=== PATIENT | female | born 1945 | race Caucasian/White ===

== ENCOUNTER → 2016-12-11 | Outpatient (CLI) | payer OTHER, MEDICARE ==
[~2016-12-11] MED LIST: GADOBUTROL 10 ML VIAL IVP ONE
== END ==
LOC: FIMAGING 11:47
PROVIDERS: ATTEND Psychiatry & Neurology Neurology
DX: G93.89 Other specified disorders of brain (principal); M51.36 Other intervertebral disc degeneration, lumbar region; M50.31 Other cervical disc degeneration, high cervical region; M48.02 Spinal stenosis, cervical region; M50.821 Other cervical disc disorders at C4-C5 level; I71.6 Thoracoabdominal aortic aneurysm, without rupture; I71.4 Abdominal aortic aneurysm, without rupture; M48.00 Spinal stenosis, site unspecified; G62.9 Polyneuropathy, unspecified; R26.0 Ataxic gait
CPT/HCPCS: 70553; 72141; 72148; A9585; 82607-90; 86334-90

== ENCOUNTER 2016-12-13 15:04 | Inpatient (IN) | payer OTHER, MEDICARE ==
--- NOTE | 2016-12-13 15:06 | EDPHY ---
HPI/HX/ROS/PE/MDM Narrative: CHIEF COMPLAINT: Nausea, vomiting HPI: The patient is a 71 y/o female arriving via EMS from a neurology follow up appointment at [facility] at the referral of her neurologist. Per , she has become progressively weaker for the last 2 months with associated difficulty eating. She saw her PCP, Dr. Rodriguez, 2 weeks ago and she ordered MRIs of her head, neck, and spine to investigate patient's complaint of bilateral leg numbness, headaches, weight loss, and generalized weakness. She was at her neurologist's office today to discuss the MRI results, but was not evaluated before her neurologist called EMS due to hypotension, tachycardiac, vomiting, and weakness. The patient reports she feels "very weak and tired," but it is not clear if her symptoms are particularly worse today and it sounds like she may have felt vaguely improved earlier this morning. She denies fever, hematemesis, new medications, recent illness, or recent trauma. REVIEW OF SYSTEMS: Aside from elements discussed in the HPI, a comprehensive 10-point review of systems was reviewed and is negative. PMH: Peripheral artery disease, depression, descending thoracic aneurysm, degenerative disc disease, white matter changes on brain MRI 12/11/16, femoral popiteal bypass surgery May 2016, hypertension - lisinopril, insomnia - trazodone SOCIAL HISTORY: and daughter at bedside. Smoker. Surgeon: Dr. Kaiser Molina Neurologist: Dr. Gaxiola PCP: Dr. Sandra Rodriguez Prior medical records reviewed including MRIs from 12/11/16 and prior admission for dyspnea. PHYSICAL EXAM: General:Patient is alert, in no acute distress. Cachectic, thin. 86% SpO2 on room air. ENT:Eyes are normal to inspection. ENT inspection normal. Neck: Normal inspection. Full range of motion. Respiratory:No respiratory distress. Breath sounds normal bilaterally. Cardiovascular: Tachycardic regular rate and rhythm. Strong peripheral pulses. Normal cap refill. Abdomen:The abdomen is nontender to palpation. There are no peritoneal signs. There are normal bowel sounds. Back: Normal to inspection. No tenderness to palpation. Skin: Normal color. No rash. Warm and dry. Extremities: Normal appearance. Full range of motion. Neuro: Oriented x3. Normal motor function. Normal sensory function. ED Course: This is a 71 y/o female who presents with several weeks of worsening weakness with apparent new onset nausea and vomiting today. She was sent to the ED by her neurologist due to concern for tachycardia and hypotension while at their office today, though we do not have those measurements available. She is hypoxemic at 86% on room air, normotensive, and tachycardic at 117 upon arrival here. She appears cachectic but otherwise her exam is unremarkable. Plan to review prior records and perform labs and cardiac monitoring. IV established. Labs drawn including CBC, CHEM, troponin. UA and EKG ordered. MRIs from 12/11/16 show degenerative disc disease, white matter changes, and ventriculomegaly potentially cause by NPH. No acute process. The 12 lead EKG was interpreted by myself. Sinus rhythm rate 84. Abnormal R wave progression. See hard copy and/or "tracemaster" electronic copy for interpretation. MDM: This patient essentially presents with crescendo symptoms of dehydration, anorexia and failure to thrive. The etiology is unknown. Her MRI suggests that NPH may be playing a role. Her workup in the ED is essentially negative. I see no signs of sepsis, severe sepsis, UTI, pneumonia, hyponatremia. - Data Points Laboratory Results: Laboratory Results 12/13/16 17:22 12/13/16 15:32 12/13/16 12/13/16 12/13/16 17:22 16:50 15:32 WBC 8.57 10^3/uL 10^3/uL (3.80-9.50) RBC 5.05 10^6/uL 10^6/uL (4.18-5.33) Hgb 13.5 g/dL g/dL (12.6-16.3) Hct 40.8 % % (38.0-47.0) MCV 80.8 fL L fL (81.5-99.8) MCH 26.7 pg L pg (27.9-34.1) MCHC 33.1 g/dL g/dL (32.4-36.7) RDW 14.7 % % (11.5-15.2) Plt Count 254 10^3/uL 10^3/uL (150-400) MPV 10.2 fL fL (8.7-11.7) Neut % (Auto) 77.4 % H % (39.3-74.2) Lymph % (Auto) 15.4 % % (15.0-45.0) [place] % (Auto) 5.7 % % (4.5-13.0) Eos % (Auto) 0.9 % % (0.6-7.6) Baso % (Auto) 0.2 % L % (0.3-1.7) Nucleat RBC Rel Count 0.0 % % (0.0-0.2) Absolute Neuts (auto) 6.63 10^3/uL H 10^3/uL (1.70-6.50) Absolute Lymphs (auto) 1.32 10^3/uL 10^3/uL (1.00-3.00) Absolute Monos (auto) 0.49 10^3/uL 10^3/uL (0.30-0.80) Absolute Eos (auto) 0.08 10^3/uL 10^3/uL (0.03-0.40) Absolute Basos (auto) 0.02 10^3/uL 10^3/uL (0.02-0.10) Absolute Nucleated RBC 0.00 10^3/uL 10^3/uL (0-0.01) Immature Gran % 0.4 % % (0.0-1.1) Immature Gran # 0.03 10^3/uL 10^3/uL (0.00-0.10) Sodium 132 mEq/L L mEq/L (134-144) Potassium 5.0 mEq/L mEq/L (3.5-5.2) Chloride 97 mEq/L mEq/L (97-110) Carbon Dioxide 25 mEq/l mEq/l (22-31) Anion Gap 10 mEq/L mEq/L (8-16) BUN 18 mg/dL mg/dL (7-23) Creatinine 1.1 mg/dL H mg/dL (0.6-1.0) Estimated GFR 49 Glucose 112 mg/dL H mg/dL (70-100) Calcium 10.1 mg/dL mg/dL (8.5-10.4) Troponin I < 0.012 ng/mL ng/mL (0-0.034) Urine Color YELLOW Urine Appearance HAZY Urine pH 6.0 (5.0-7.5) Ur Specific [place] 1.014 (1.002-1.030) Urine Protein NEGATIVE (NEGATIVE) Urine Ketones TRACE H (NEGATIVE) Urine Blood NEGATIVE (NEGATIVE) Urine Nitrate NEGATIVE (NEGATIVE) Urine Bilirubin NEGATIVE (NEGATIVE) Urine Urobilinogen NEGATIVE EU EU (0.2-1.0) Ur Leukocyte Esterase NEGATIVE (NEGATIVE) Ur Culture Indicated? NOT INDICATED (NI) Urine Glucose NEGATIVE (NEGATIVE) Medications Given: Discontinued Medications Sodium Chloride (Ns) 500 mls @ 0 mls/hr IV ONCE ONE PRN Reason: As Directed Stop: 12/13/16 15:13 Last Admin: 12/13/16 15:47 Dose: 500 mls General Initial Vital Signs: Initial Vital Signs Temperature (C) 36.6 C 12/13/16 15:19 Heart Rate 90 12/13/16 15:19 Respiratory Rate 18 12/13/16 15:19 Blood Pressure 153/99 H 12/13/16 15:19 O2 Sat (%) 86 L 12/13/16 15:19 O2 Delivery Mode Nasal Cannula O2 (L/minute) 2 Allergies/Adverse Reactions: No Known Allergies Allergy (Verified 05/29/16 12:13) Home Medications: Medication Instructions Recorded traZODone [traZODONE 50MG (*)] 100 mg PO HS 05/18/16 Herbals/Supplements -Info Only 1 ea PO DAILY 05/29/16 Fluoxetine HCl [Prozac 40 mg] 40 mg PO DAILY 12/13/16 Lisinopril [Zestril 30 mg] 30 mg PO DAILY 12/13/16 Departure - Departure Disposition: [facility] Inpatient Acute Clinical Impression: Dehydration Failure to thrive Qualifiers: Failure to thrive age range: in adult Qualified Code(s): R62.7 - Adult failure to thrive Nausea and vomiting Qualifiers: Vomiting type: unspecified Vomiting Intractability: non-intractable Qualified Code(s): R11.2 - Nausea with vomiting, unspecified Condition: Fair Report Scribed for: Luc Goodwin Report Scribed by: Mamta Multani Date of Report: 12/13/16 Time of Report: 15:05 Physician Review and Approval Statement: Portions of this note were transcribed by an ED scribe. I personally performed the history, physical exam, and medical decision making; and confirm the accuracy of the information in the transcribed note.
[2016-12-13] MEDS ORDERED: NS 500 ML IV ONE (15:12)
--- NOTE | 2016-12-13 15:45 | CPEKG ---
Heart Rate: 84 RR Interval: 714 P-R Interval: 136 QRSD Interval: 78 QT Interval: 392 QTC Interval: 464 P [place]: 87 QRS [place]: 37 T Wave [place]: 72 EKG Severity - ABNORMAL ECG - EKG Impression: SINUS RHYTHM EKG Impression: PROBABLE LEFT ATRIAL ABNORMALITY EKG Impression: ABNRM R PROG, CONSIDER ASMI OR LEAD PLACEMENT Electronically Signed By: Freida Duggan 14-Dec-2016 10:29:21
[2016-12-13 15:52] LABS: ANION GAP 10 mEq/L (8-16); CALCIUM 10.1 mg/dL (8.5-10.4); CARBON DIOXIDE 25 mEq/l (22-31); CHLORIDE 97 mEq/L (97-110); CREATININE 1.1 mg/dL (0.6-1.0); GLOMERULAR FILTRATION RATE 49; GLUCOSE 112 mg/dL (70-100); SODIUM 132 mEq/L (134-144)
[2016-12-13 16:04] LABS: TROPONIN I < 0.012 ng/mL (0-0.034)
[2016-12-13 17:21] LABS: COLOR YELLOW; LEUKOCYTE ESTERASE,URINE NEGATIVE (NEGATIVE); NITRITE,URINE NEGATIVE (NEGATIVE)
[2016-12-13 17:31] LABS: % IMMATURE GRANULYOCYTES 0.4 % (0.0-1.1); ABSOLUTE IMMATURE GRANULOCYTES 0.03 10^3/uL (0.00-0.10); ADD DIFF? NO; ADD MORPH? NO; ADD SCAN? NO; ATYPICAL LYMPHOCYTE FLAG 10 (0-99); FRAGMENT RBC FLAG 0 (0-99); HEMATOCRIT 40.8 % (38.0-47.0); HEMOGLOBIN 13.5 g/dL (12.6-16.3); LEFT SHIFT FLG 0 (0-99); LIPEMIA HEMOLYSIS FLAG 80 (0-99); MEAN CELL HEMOGLOBIN 26.7 pg (27.9-34.1); MEAN CELL HEMOGLOBIN CONCENTR. 33.1 g/dL (32.4-36.7); MEAN CELL VOLUME 80.8 fL (81.5-99.8); MEAN PLATELET VOLUME 10.2 fL (8.7-11.7); PLATELET CLUMPS FLAG 0 (0-99); PLATELET COUNT 254 10^3/uL (150-400); RED BLOOD CELL COUNT 5.05 10^6/uL (4.18-5.33); RED CELL DISTRIBUTION WIDTH 14.7 % (11.5-15.2)
[2016-12-13] MEDS ORDERED: ACETAMINOPHEN 325 MG TAB PO PRN (19:39)
[2016-12-13] MEDS ORDERED: IOPAMIDOL (ISOVUE-300) 100 ML BTL IV ONE (19:51)
[2016-12-13] MEDS: ONDANSETRON 4 MG/2 ML VIAL IVP PRN (20:29)
[2016-12-13] MEDS: D5W 1/2 NS 1,000 ML IV SCH (22:14)
[2016-12-13] MEDS: traZODone 100 MG TAB PO SCH (22:33)
[2016-12-14 06:00] LABS: ALANINE AMINOTRANSFERASE 29 IU/L (9-52); ALBUMIN 3.1 g/dL (3.5-5.0); ALKALINE PHOSPHATASE 66 IU/L (38-126); ANION GAP 7 mEq/L (8-16); ASPARTATE AMINOTRANSFERASE 17 IU/L (14-46); BILIRUBIN,TOTAL 0.7 mg/dL (0.1-1.4); CALCIUM 8.9 mg/dL (8.5-10.4); CARBON DIOXIDE 24 mEq/l (22-31); CHLORIDE 102 mEq/L (97-110); CREATININE 0.9 mg/dL (0.6-1.0); GLOMERULAR FILTRATION RATE > 60; GLUCOSE 97 mg/dL (70-100); POTASSIUM 4.4 mEq/L (3.5-5.2); SODIUM 133 mEq/L (134-144); TOTAL PROTEIN 5.6 g/dL (6.3-8.2)
[2016-12-14 06:07] LABS: PREALBUMIN 19.3 mg/dL (17.6-36.0)
[2016-12-14] MEDS: FLUoxetine 20 MG CAP PO SCH (09:41)
[2016-12-14] MEDS: ENOXAPARIN 30 MG/0.3 ML SYR SC SCH (09:41)
[2016-12-14] MEDS: LISINOPRIL 20 MG TAB PO SCH (09:43)
[2016-12-14] MEDS: ONDANSETRON 4 MG/2 ML VIAL IVP PRN ×2 (09:50→17:31)
[2016-12-14] MEDS: D5W 1/2 NS 1,000 ML IV SCH (12:15)
--- NOTE | 2016-12-14 14:56 | GHP ---
[f rep st] HISTORY AND PHYSICAL DATE OF ADMISSION: 12/13/2016 This is a late entry. I believe I dictated this H and P last night but it has not been recorded so I am redictating it at this time. CHIEF COMPLAINT: Weakness and failure to thrive. HISTORY OF PRESENT ILLNESS: This is a 71-year-old female with a history of peripheral vascular dise ase who had a bypass surgery done in May of last year. The patient states that since this operat ion, she has been slowly getting worse, especially over the last month. She has had nausea and decr eased p.o. intake. She has had about 30 pounds of weight loss. She also is complaining of lower ex tremity weakness, which she says is out of proportion to her general debility. She has had no fever s or chills. No abdominal pain. Her bowel movements were normal. She denies any fevers or chills. She last saw her primary care doctor a couple of weeks ago who ordered MRI of her brain and spine. There is some suggestion of normal-pressure hydrocephalus but nothing acute to explain her lower e xtremity weakness. She had an appointment with a neurologist today and had some hypotension, tachyc ardia and vomiting. She came to the emergency department today. REVIEW OF SYSTEMS: A 10-point review of systems was obtained and was negative. PAST MEDICAL HISTORY: 1. Peripheral vascular disease status post fem-pop bypass last year. 2. History of descending thoracic aneurysm. 3. Hypertension. SOCIAL HISTORY: She is . FAMILY HISTORY: Father had a stroke. PHYSICAL EXAMINATION: VITAL SIGNS: Afebrile. Blood pressure is 151/74, heart rate 83, oxygen satu ration is 97% on 2 L. GENERAL: The patient is cachectic in no apparent distress. HEENT: Nonicter ic sclerae. Moist mucous membranes. NECK: Supple. No thyromegaly. LUNGS: Good effort. Clear t o auscultation bilaterally. CARDIOVASCULAR: Regular rate and rhythm. No murmurs, rubs, or gallops . ABDOMEN: Positive bowel sounds. Soft. No masses. EXTREMITIES: No clubbing, cyanosis, or juwan a. SKIN: Without rash. Warm, dry, intact. NEUROLOGIC: 5/5 strength in all 4 extremities. PSYCH : Normal affect. LABORATORY DATA: CBC is normal. Chemistry is normal. Chest x-ray shows thoracic aortic aneurysm and is otherwise negative. ASSESSMENT: This is a 71-year-old female who has been at a slow decline with increased lower extrem ity weakness. PLAN: 1. Weight loss, abdominal symptoms, chronic nausea. Unsure what the etiology is. She has not had a CT scan of her abdomen and pelvis, which I think we will start with. Gallbladder disease is also possible and could consider HIDA scan. Would also consider Gastroenterology consultation and possib ly endoscopy as well. We will check a CEA and a prealbumin. We will also get a CAT scan of her dylan st as she is a previous smoker and to rule out some type of malignancy. 2. Lower extremity weakness. I think this is more related to her overall weakness. We could have Neurology see the patient in-house as well. 3. Thoracic aortic aneurysm. We will see this on the CT scan of the chest. 4. Hypertension. Will continue her medications. /[id number]/MODL
--- NOTE | 2016-12-14 15:27 | HOSPPROG ---
Hospitalist Progress Note Assessment/Plan: this is a 71-year-old female new to my care presenting with # chronic nausea, anorexia, and weight loss of unclear etiology. I discussed case with her surgeon Dr. Julien Molina is thinks some of her problems may be related to depression. CEA was done on admission that was very mildly elevated. The patient's family tell me that she has had a negative GI workup in the past. Will consider repeat GI consultation to evaluate for upper endoscopy if her symptoms are not explained by Something else. doubt biliary etiology given her normal LFTs in lack of abdominal pain. # lower extremity weakness in the setting of cognitive impairment, urinary incontinence, gait disturbance, and possible evidence for NPH on MRI - neurology consult called # 6.4 cm aneurysmal dilation of the descending thoracic aorta - cardiothoracic surgery to consult # hypertension disposition: Will continue inpatient care since clearly the patient is not doing well at home. Subjective: she continues to have nausea. She is hardly eating anything. She continues to have weakness in her legs. She reports some intermittent incontinence which she thinks that this is more from inability to get to the bathroom then inability to control of bladder. Objective: Vital Signs Temp Pulse Resp BP Pulse Ox 36.4 C 82 16 125/79 H 96 12/14/16 11:32 12/14/16 11:32 12/14/16 11:32 12/14/16 11:32 12/14/16 11:32 Laboratory Results 12/14/16 05:36 12/13/16 12/14/16 12/15/16 05:59 05:59 05:59 Intake Total 300 361 Balance 300 361 - Physical Exam Constitutional: chronically ill appearing Cardiovascular: regular rate and rhythym, no murmur, rub, or gallop Respiratory: no respiratory distress, no rales or rhonchi, clear to auscultation Gastrointestinal: normoactive bowel sounds, soft, non-tender abdomen, no palpable masses, No guarding, No rebound Neurologic: AAOx3, CN II-XII Intact, No facial droop ICD10 Worksheet Patient Problems: Problems Problem Status Onset Renal infarction Acute Shortness of breath Acute Failure to thrive Acute Nausea and vomiting Acute Dehydration Acute
[2016-12-14] MEDS: ONDANSETRON DISINTEGRATING 4 MG TAB PO PRN (20:34)
[2016-12-14] MEDS: traZODone 100 MG TAB PO SCH (20:34)
[2016-12-15] MEDS: FLUoxetine 20 MG CAP PO SCH ×2 (08:39→10:03)
[2016-12-15] MEDS: ENOXAPARIN 30 MG/0.3 ML SYR SC SCH (08:40)
[2016-12-15] MEDS: LISINOPRIL 20 MG TAB PO SCH (10:03)
--- NOTE | 2016-12-15 12:45 | PDCONSULT ---
Client Manager Note: Today's consultation was spent in counseling and coordination of care. I visited with the patient and her for 60 mins. 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 Cary is a patient of mine from the outpatient setting I've been evaluating for chronic gait dysfunction. she had presented for neurologic follow-up at our office on December 13, but appeared to be late for her appointment. She was found outside of our office by 1 of our medical assistance unable to ambulate and vomiting in the hallway. She endorsed nausea and was found to have systolic blood pressures in the 80s-90s and was tachycardic in the 110s. She was sent to the emergency department for the above-noted symptoms and admitted to the hospital for evaluation. I was asked to see the patient while she has been hospitalized for evaluation and follow-up on her recent neuro imaging studies. I was able to visit with the patient and her . We performed standard reversible neuropathy labs in the outpatient setting which were unremarkable, but she did have length-dependent changes on exam suspect for an idiopathic peripheral neuropathy. She had MRIs of the cervical and lumbar spine which revealed moderate stenosis at the C5-6 level with cervical cord effacement but no edema or myelomalacia. She has a lesser degree of stenosis in the lumbar spine. She had brain imaging in the form of an MRI without contrast which showed chronic microvascular ischemic changes in the periventricular and subcortical regions (more frontally-based) as well as ventricular dilatation that seem mildly out of proportion to her global volume loss with possible transependymal flow. This has all been on a background of severe deconditioning , protein calorie malnutrition and failure to thrive with loss of appetite and depressed mood. We discussed how she has a lot going on that can be contributing to her gait dysfunction. Definitive diagnosis of NPH would involve high volume lumbar puncture with video gait analysis, which we do not offer here and is offered at [facility]. This would only be undertaken if she would be amenable to CSF diversion surgery. With regards to her spinal stenosis this would involve surgical correction and decompression, namely in the cervical spine. She voiced that she is not interested in any sort of surgical intervention, and I do not think she would be a good surgical candidate in any case given her overall physical state. We discussed in the outpatient setting, and I reinforced at this visit, continuing to optimize her conventional vascular risk factors to prevent progression of vascular disease of the brain, which could result in progressive gait disturbance due to vascular parkinsonism or stroke. We did not find any obvious reversible cause for her peripheral neuropathy, but there is a lot of nutritional deficiency in the background, so this may be playing a role. We discussed healthy overall plan going forward should be directed optimizing her nutritional status, mood and appetite. She is also being evaluated for inpatient rehab, which I think is a good idea. Focus going forward with regards to her gait should be in keeping her safe and mobile for as long as possible. I reinforced nutritional supplementation with Ensure shakes, at least 2-3 per day to provide more protein in calories. She does note significant diminished appetite for which she has tried medical marijuana as well as dronabinol. She may be a good candidate for megestrol for appetite stimulation. Another consideration may be low dose mirtazapine, which could aid in her appetite and depression, though this tends to take more time to achieve therapeutic benefit. I addressed questions and concerns at length. I offered followup with me when she has transitioned to inpatient rehab or thereafter - they can call my office for followup.
[2016-12-15] MEDS: ONDANSETRON DISINTEGRATING 4 MG TAB PO PRN (15:33)
--- NOTE | 2016-12-15 15:40 | HOSPPROG ---
Hospitalist Progress Note Assessment/Plan: 71-year-old female p/w adult FTT. # chronic nausea, anorexia, and weight loss of unclear etiology. -may be a/w depression (per her surgeon Dr. Julien Molina) -add antiemetics as Zofran isn't working. # mild CEA elevation -consider repeat GI consultation to evaluate for upper endoscopy if needed. # Possible NPH - neurology recs appreciated. # 6.4 cm aneurysmal dilation of the descending thoracic aorta - cardiothoracic surgery consulted - spoke w/ Dr. Collins today -his consultation dictation from 12/14/16 seems to have not made it through waterworks supervisor - he said her symptoms/reason for hospitalization are not coming from the TAA, that open surg carries too high risks that do not outweigh benefits in this bedbound, frail patient. She may FU as outpt for elective stent placement in the future. # hypertension disposition: med surg, inpatient status, cannot anticipate DC at this time Subjective: Saw pt today, c/o N/V. No BM. No Abd pain. Objective: Vital Signs Temp Pulse Resp BP Pulse Ox 36.7 C 81 16 119/66 94 12/15/16 12:00 12/15/16 12:00 12/15/16 12:00 12/15/16 12:00 12/15/16 12:00 Laboratory Results 12/14/16 05:36 12/14/16 12/15/16 12/16/16 05:59 05:59 06:59 Intake Total 300 2617 Output Total 300 Balance 300 2617 -300 General: The patient is a thin, elderly female who is alert and in no acute distress. HEENT: normocephalic, extraocular movements intact, conjunctivae clear, no lesions on face. Mucous membranes moist. Neck: trachea midline, no visible masses, no external lesions. CV: +S1/S2, RRR, no MRG. Resp: unlabored, CTAB no RRW. Abd: soft and nondistended. +BS. Mild point tenderness at McBurney's point and at umbilicus. Musculoskeletal: +muscle atrophy/wasting. Neuro: cranial nerves II XII grossly intact. Intact gross motor and sensory function. Psych: depressed mood/blunted affect. Skin: +pallor. Heme/lymph: No peripheral edema. ICD10 Worksheet Patient Problems: Problems Problem Status Onset Dehydration Acute Failure to thrive Acute Nausea and vomiting Acute Renal infarction Acute Shortness of breath Acute
[2016-12-15] MEDS: traZODone 100 MG TAB PO SCH (21:02)
[2016-12-15] MEDS ORDERED: PROMETHAZINE HCL 25 MG TAB PO PRN (21:33)
[2016-12-16] MEDS: ONDANSETRON DISINTEGRATING 4 MG TAB PO PRN (05:15)
[2016-12-16 06:46] LABS: ALANINE AMINOTRANSFERASE 30 IU/L (9-52); ALBUMIN 2.8 g/dL (3.5-5.0); ALKALINE PHOSPHATASE 59 IU/L (38-126); ANION GAP 5 mEq/L (8-16); ASPARTATE AMINOTRANSFERASE 16 IU/L (14-46); BILIRUBIN,TOTAL 0.5 mg/dL (0.1-1.4); CARBON DIOXIDE 27 mEq/l (22-31); CHLORIDE 105 mEq/L (97-110); CREATININE 0.8 mg/dL (0.6-1.0); GLOMERULAR FILTRATION RATE > 60; GLUCOSE 95 mg/dL (70-100); MAGNESIUM 1.7 mg/dL (1.6-2.3); SODIUM 137 mEq/L (134-144); TOTAL PROTEIN 5.2 g/dL (6.3-8.2)
[2016-12-16] MEDS: D5W 1/2 NS 1,000 ML IV SCH ×2 (09:30→22:04)
--- NOTE | 2016-12-16 11:47 | GCON ---
[f rep st] CONSULTATION DATE OF CONSULTATION: 12/13/2016 REFERRING PHYSICIAN: Elias Nagel, DO Initially performed on 12/13 and dictated on 12/13, however, not recorded in the system, and re-dictated on 12/16/2016. The patient is seen at the request of Dr. Nagel with the patient's permission. IMPRESSION: 1. Enlarging, descending thoracoabdominal aneurysm. 2. Failure to thrive of uncertain etiology with marked weight loss and profound weakness to the poi nt of being a total assist and bedridden patient. 3. Hypertension. 4. History of chronic obstructive pulmonary disease with chronic longstanding cigarette abuse. RECOMMENDATIONS: The patient does have evidence of enlargement of the descending thoracic aorta con sistent with thoracoabdominal aneurysm, and in this circumstance often TEVAR could be offered as an endovascular approach to stabilizing and controlling the upper aneurysm to the celiac artery with so me risk of paraplegia. I would not offer it to this patient at the present time, due to her other c hronic health issues with marked weight loss, weakness, and failure to thrive. The aneurysm is in n o way contributing to her current medical condition. She is at some risk for rupture, at which poin t I would not offer her surgical intervention at this point, either given her continued deterioratin g status of uncertain etiology. Should her medical status improve or stabilize and she were able to return to full productive life with weight stabilization, weight gain, and ambulatory status, I wou ld offer her a moderate to high risk endovascular control of her expanding thoracic aneurysm, which will eventually rupture. The patient and the daughter were advised of the same. We will provide he r with contact information should she get discharged from the hospital. We could see her in followu p in a month with repeat CT scan if she, in fact, continues to stabilize and improve. CHIEF COMPLAINT: Failure to thrive, weakness, and poor general status. HISTORY OF CHIEF COMPLAINT: The patient has had a continuous downhill course for the last 9-12 jose e hs of weight loss, weakness. As stated above. She was to be seen by a neurologist for her ongoing weakness when she became somewhat unstable at the office, and was referred to the emergency room. S he since has been admitted to the hospitalist service. CT scan revealed marked thoracic and abdomin al aortic changes as described in the CT scan. MEDICAL HISTORY: Noncontributory. SOCIAL HISTORY: Socially, she has recently discontinued heavy ongoing cigarette abuse for most of h er life with COPD and peripheral vascular disease. She had a known thoracic aneurysm, which had been followed by Dr. Molina, but was felt to be too high risk to intervene. I was asked to see her regarding her current aneurysm status. REVIEW OF SYSTEMS: Not elicited. I strictly address the aneurysm. PHYSICAL EXAMINATION: GENERAL: This is a cachectic, elderly female who appears quite weak and frai l, unable to sit at the edge of the bed by herself, requiring full assistance of nursing and her tyshawn ghter, who is at the bedside. VITAL SIGNS: Blood pressure was 96/70, respirations are 14, heart ra te 72. GENERAL: Cachectic and weak. CARDIAC: Heart rate is regular without a murmur. LUNGS: Di minished with increased AP diameter. ABDOMEN: Scaphoid. EXTREMITIES: Femoral pulses are 2+. She has no edema. No varicosities. DIAGNOSTIC STUDIES: A CT scan was reviewed. /[id number]/MODL
[2016-12-16] MEDS: FLUoxetine 20 MG CAP PO SCH (11:55)
[2016-12-16] MEDS: ENOXAPARIN 30 MG/0.3 ML SYR SC SCH (11:56)
--- NOTE | 2016-12-16 16:47 | GCON ---
[f rep st] CONSULTATION DATE OF CONSULTATION: 12/16/2016 REFERRING PHYSICIAN: Dr. Watson REASON FOR CONSULTATION: Nausea, weight loss, anorexia, failure to thrive. HISTORY OF PRESENT ILLNESS: I have been asked by Dr. Watson to see the patient in consultation with a chief complaint of weakness, anorexia, nausea, and weight loss. She is a pleasant 71-year-old female with past medical history significant for peripheral vascular disease and hypertension, who was doing reasonably well until last May in 2015 when she had a femoral-popliteal bypass, and since then, has been doing very poorly. Her p.o. intake has been decreasing. She complains of nausea, early satiety, and she has lost a significant amount of weight. She is more weak because of her weight loss and decline. She does not complain of dysphagia, odynophagia or heartburn. She does not remember being tried on any acid-reducing medications. She has not been on any antinausea medications except for Zofran. She does not complain of any diarrhea or constipation. She has no fevers, chills or sweats. She does have a peripheral neuropathy; this is being worked up by Neurology. She has been admitted for the above symptoms, and I am called to help and evaluate to see if there is a GI etiology for these. PAST MEDICAL HISTORY: Peripheral vascular disease, history of descending thoracic aneurysm, hypertension. PAST SURGICAL HISTORY: Fem BiPAP in May 2016, and tonsillectomy as a child. SOCIAL HISTORY: She is . She does not smoke or drink. FAMILY HISTORY: She has a lot of strokes in the family. No GI malignancies to her knowledge. MEDICATIONS: In hospital include Tylenol p.r.n., Lovenox 30 mg subcutaneous daily, Prozac 40 mg daily, lisinopril 30 mg daily, Zofran p.r.n., Phenergan p.r.n., trazodone 100 mg daily. As an outpatient, she takes Prozac, lisinopril and trazodone. ALLERGIES: No known drug allergies. REVIEW OF SYSTEMS: A comprehensive review of system is performed, is negative other than noted in the HPI. Pertinent negatives also include no chest pain, palpitations, diaphoresis, melena, hematochezia, hematuria. PHYSICAL EXAMINATION: GENERAL APPEARANCE: Chronically ill-appearing female sitting in her chair in no acute distress. VITAL SIGNS: Blood pressure is 149/ 78, pulse is 96, respirations are 18. She is 93% on nasal cannula. Her temperature was 35.8, earlier today was 36.8. HEENT: Eyes anicteric. EOMI. Mouth: No lesions. NECK: Supple. No JVD. BACK: No spine tenderness. LUNGS : Clear. CARDIAC: S1, S2. Regular rate and rhythm. No murmurs, rubs, gallops appreciated. ABDOMEN: Bowel sounds are normal pitch and frequency. Soft with mild epigastric and right lower quadrant tenderness. No rebound. No guarding. No hepatosplenomegaly. EXTREMITIES: No cyanosis, clubbing, or edema. NEUROLOGIC: Cranial nerves intact. Nonfocal. SKIN: No rashes. No stigmata of advanced liver disease. LABORATORY DATA: From the , WBC 8.57, hemoglobin 13.5, hematocrit 40.8, platelet count 254. From the , sodium 137, potassium 4.0, chloride 105, bicarbonate 27, BUN 7, creatinine 0.8, glucose 95, calcium 9.0, magnesium 1.7, bilirubin is 0.5. AST 16, ALT 30, alkaline phosphatase 59, total protein low at 5.2, albumin low at 2.8. From the , CEA is minimally elevated at 4.17. From the , also TSH is 1.49. From the , troponin was less than 0.012. Urinalysis from the showed trace ketones, otherwise was negative. Celiac labs from the are pending. Abdominal CAT scan from December 13, 2016, with IV, but no oral contrast, shows dilation of the aorta through its course in the abdomen measuring 4 cm at its most. There is insignificant intraluminal plaque noted. Iliac vessels are not dilated. The liver is normal. The gallbladder looks normal. The bile ducts look normal. An abdominal CAT scan done May 19,6 with IV, but no oral contrast, shows atrophic left kidney, with probable acute infarct in the inferior pole of left kidney. A stable abdominal aortic aneurysm. Abdominal ultrasound performed November 02, 2015: Normal gallbladder, without evidence of gallstones or inflammation. Normal bile ducts. Mild hepatic steatosis. Abdominal x-ray from December 16, 2016: Mild right-sided constipation. No evidence of obstruction or ileus. ASSESSMENT: 1. Anorexia. 2. Weight loss. 3. Nausea. 4. History of aortic aneurysm. 5. Possible normal-pressure hydrocephalus and neuropathy being evaluated by Neurology. 6. Hypertension. RECOMMENDATIONS: 1. EGD for evaluation of her anorexia, weight loss, and nausea. 2. Pending results of the EGD, will write for PPI, as well as at bedtime h2ra. I will give a first dose of PPI now, but then will be before breakfast in the future. 3. Treatment of her peripheral vascular disease, aneurysm, hypertension, as per hospitalist and specialists. 4. Further recommendations to follow results of above and clinical course. Thank you for allowing me to participate in this patient's healthcare. Do not hesitate to call with any questions. /[id number]/MODL MTDD
[2016-12-16] MEDS: LISINOPRIL 20 MG TAB PO SCH (16:53)
--- NOTE | 2016-12-16 19:00 | HOSPPROG ---
Hospitalist Progress Note Assessment/Plan: 71-year-old female p/w adult FTT. # chronic nausea, anorexia, early satiety, and weight loss of unclear etiology. -may be a/w depression -added promethazine as Zofran isn't working. -Consulted GI - recs appreciated - planning for EGD. -KUB ordered - r/o ileus -discussed w/ her PCP Dr. Rodriguez and her surgeon Dr. Molina. # mild CEA elevation -Planning for EGD as above. # Possible Mild NPH - neurology recs appreciated. - definitive Dx requires invasive procedure, pt not likely to tolerate. #spinal stenosis # 6.4 cm aneurysmal dilation of the descending thoracic aorta - cardiothoracic surgery consulted - recs appreciated. Poor surg candidate, may FU as outpt for elective stent placement. # 4cm AAA # hypertension #constipation -adding bowel regimen disposition: med surg, inpatient status, cannot anticipate DC at this time Subjective: Pt feels about the same today. Gets full quickly, after 2 bites of food. Has no appetite. Feels very fatigued. Has not had a bowel movement. Objective: Vital Signs Temp Pulse Resp BP Pulse Ox 36.7 C 75 18 117/71 94 12/16/16 16:52 12/16/16 16:52 12/16/16 16:52 12/16/16 16:52 12/16/16 16:52 Laboratory Results 12/16/16 05:08 12/15/16 12/16/16 12/17/16 04:59 05:59 05:59 Intake Total Output Total Balance General: The patient is a thin, elderly female who is alert and in no acute distress. HEENT: normocephalic, extraocular movements intact, conjunctivae clear, no lesions on face. Mucous membranes moist. Neck: trachea midline, no visible masses, no external lesions. CV: +S1/S2, RRR, no MRG. Resp: unlabored, CTAB no RRW. Abd: soft and nondistended. +BS. Mild tenderness to in LUQ/LLQ. Musculoskeletal: +muscle atrophy/wasting. Neuro: cranial nerves II XII grossly intact. Intact gross motor and sensory function. Psych: depressed mood/blunted affect. Skin: +pallor. Heme/lymph: No peripheral edema. ICD10 Worksheet Patient Problems: Problems Problem Status Onset Dehydration Acute Failure to thrive Acute Nausea and vomiting Acute Renal infarction Acute Shortness of breath Acute
[2016-12-16] MEDS ORDERED: MAGNESIUM HYDROXIDE 30 ML UDCUP PO PRN (19:02)
[2016-12-16] MEDS ORDERED: LACTULOSE 20 GM/30 ML UDCUP PO PRN (19:02)
[2016-12-16] MEDS ORDERED: BISACODYL 10 MG SUPP PR PRN (19:02)
[2016-12-16] MEDS ORDERED: POLYETHYLENE GLYCOL 3350 17 GM PKT PO PRN (19:02)
[2016-12-16] MEDS: PANTOPRAZOLE SODIUM 40 MG TAB PO SCH (19:06)
[2016-12-16] MEDS: SENNOSIDES/DOCUSATE SODIUM TAB PO SCH (20:02)
[2016-12-16] MEDS: traZODone 100 MG TAB PO SCH (21:10)
[2016-12-17] MEDS ORDERED: MIDAZOLAM 2 MG/2 ML VIAL ONE ×2 (07:43→08:42)
[2016-12-17] MEDS ORDERED: fentaNYL 100 MCG/2 ML INJ ONE ×2 (07:44→08:42)
--- NOTE | 2016-12-17 08:38 | POSTOPPROG ---
Post Op Note Date of Operation: 12/17/16 Surgeon: Jose R Bell Anesthesia: IV Sedation (versed 4mg iv and fentanyl 100mcg IV) Pre-op Diagnosis: anorexia, weight loss, nause Post-op Diagnosis: 'crepe paper esoph proximally, nml distal esoph, gastritis Indication: anorexia, weight loss nausea Procedure: egd with bx Findings: prox esoh 'crepe paper', erosive gastritis Inf/Abcess present in the surg proc area at time of surgery?: No EBL: Minimal (few ml) Complications: none immediate Specimen(s): 1) antrum 2) body 3) prox esoph
[2016-12-17] MEDS ORDERED: FAMOTIDINE 20 MG TAB PO SCH ×2 (09:00→21:00)
--- NOTE | 2016-12-17 09:34 | GPN ---
[f rep st] PROCEDURE NOTE DATE OF PROCEDURE: 12/17/2016 PROCEDURE: Esophagogastroduodenoscopy with biopsy. INDICATION: Anorexia, weight loss, nausea. PREOPERATIVE DIAGNOSIS: Rule out peptic ulcer disease. POSTOPERATIVE DIAGNOSES: 1. Changes with "crepe paper" esophagitis in the proximal esophagus extending to approximately 30 c m. Normal distal esophagus. 2. Erosive gastritis both in the distal body and the antrum. 3. Normal duodenal. INFORMED CONSENT: I had a detailed discussed with the patient regarding the procedure, alternatives , benefits, and risks including bleeding, perforation, infection, risk of medication. Informed cons ent was signed and witnessed. COMPLICATIONS: None immediate. MEDICATIONS USED: Fentanyl 100 mcg IV, Versed 4 mg IV. DESCRIPTION OF PROCEDURE: Patient was placed in left lateral decubitus position. After adequate se dation, a forward viewing upper endoscope was inserted in the oropharynx and advanced under direct v isualization down the esophagus. The proximal esophagus was abnormal with a "crepe paper" appearanc e. This was only present from the proximal esophagus to approximately 30 cm. The distal esophagus was completely normal without any evidence of esophagitis or other mucosal abnormality. The endosco pe was advanced into the stomach. There was erosive gastritis in the distal body and antrum. The b rene had some heaped up little nodules with erosions in them. The antrum was more of a diffuse proce ss. The pylorus was normal. The duodenal bulb and sweep were normal. The endoscope was withdrawn back into the stomach and a retroflex examination was performed. The endoscope was un-retroflexed a nd biopsies were taken from both the antrum and the distal body for histologic evaluation. The endo scope was withdrawn back up into the proximal esophagus and multiple biopsies were taken from the pr oximal esophagus for histologic evaluation. The endoscope was advanced back into the stomach and th e air was removed. The endoscope was completely withdrawn, confirming the above findings. The karlos ent tolerated the procedure well, and was transferred to recovery area in satisfactory condition. IMPRESSION: 1. "Crepe paper" esophagus and proximal esophagus biopsies approximately 30 cm. 2. Normal distal esophagus. 3. Erosive gastritis and distal body and antrum. 4. Normal duodenal. RECOMMENDATIONS: 1. Continue pantoprazole 40 mg p.o. q. a.m. 2. Add H2RA at bedtime. In the hospital will be Pepcid 40 mg. Outpatient can either be Pepcid/fam otidine 40 mg or Zantac/ranitidine 300 mg. 3. Strict risk modifications and lifestyle changes, specifically do not lie down within 2-3 hours o f eating. 4. Follow up all biopsies. If any significant abnormality, treat as appropriate. 5. If the patient's nausea does not improve, then I would recommend further evaluation with evaluat ion of her biliary system. 6. Return patient to hospital [facility] for ongoing care. 7. Advance diet as tolerated. 8. Further recommendations to follow up with doctor above. The findings I saw could account for the patient's anorexia, weight loss, and nausea but I think aci d suppression is appropriate and I am optimistic that will improve her symptoms. As above, if it do es not, further evaluation will be necessary with initial attention to the biliary system. Thank you, for allowing me to participate in this patient's healthcare. Do not hesitate to call me with any questions. /[id number]/MODL
[2016-12-17] MEDS: FLUoxetine 20 MG CAP PO SCH (10:28)
[2016-12-17] MEDS: PANTOPRAZOLE SODIUM 40 MG TAB PO SCH (10:31)
[2016-12-17] MEDS: SENNOSIDES/DOCUSATE SODIUM TAB PO SCH ×2 (10:31→20:28)
[2016-12-17] MEDS: LISINOPRIL 20 MG TAB PO SCH (10:31)
[2016-12-17] MEDS: D5W 1/2 NS 1,000 ML IV SCH ×2 (10:31→17:10)
--- NOTE | 2016-12-17 16:58 | HOSPPROG ---
Hospitalist Progress Note Assessment/Plan: 71-year-old female with known severe depression in the last 9-12 months with 35- 40 lb weight loss during that time. She is admitted medically for management. The patient is new to me today. - adult failure to thrive with chronic nausea anorexia and early satiety with approximately 35-40 lb weight loss. -may be a/w depression -added promethazine as Zofran isn't working. -Consulted GI - recs appreciated - planning for EGD. -KUB ordered - r/o ileus -discussed w/ her PCP Dr. Rodriguez and her surgeon Dr. Molina. Discussed today also with doctors Laura Goel with Psychiatry and a psychiatric consultation in consideration of ECT treatment for severe depression - mild CEA elevation. EGD showed positive findings of gastritis and some abnormalities of the esophagus but probably not significant enough to account for the lady's nausea vomiting and pursue weight loss. We will treat with PPI medications per - Mild NPH Possible - neurology recs appreciated. - definitive Dx requires invasive procedure, pt not likely to tolerate. - spinal stenosis - 6.4 cm aneurysmal dilation of the descending thoracic aorta - cardiothoracic surgery consulted - recs appreciated. Poor surg candidate, may FU as outpt for elective stent placement. - 4cm AAA - hypertension in good control - constipation -adding bowel regimen Subjective: Very quiet with no specific complaints. She admits to a very poor appetite and says that she gets early satiety. Denies having abdominal pain. She does have rather persistent nausea. She has been no fever cough or chest pain. Objective: Vital Signs Temp Pulse Resp BP Pulse Ox 36.7 C 77 14 121/49 H 93 12/17/16 16:11 12/17/16 16:11 12/17/16 16:17 12/17/16 16:11 12/17/16 16:17 Laboratory Results 12/16/16 05:08 12/16/16 12/17/16 12/18/16 05:59 05:59 05:59 Intake Total 1664 1216 Output Total Balance 1664 1216 - Time Spent With Patient Time Spent with Patient: greater than 35 minutes Time Spent with Patient: Greater than 35 minutes spent on this patients care, greater than 50% of time spent counseling, educating, and coordinating care regarding the above mentioned plan. - Pending Discharge Pending Discharge Within 48 Hours: No - Physical Exam Constitutional: no apparent distress, chronically ill appearing, cachectic Eyes: PERRL Ears, Nose, Mouth, Throat: moist mucous membranes, hearing normal Cardiovascular: regular rate and rhythym, no murmur, rub, or gallop Respiratory: no respiratory distress, no rales or rhonchi, clear to auscultation Gastrointestinal: normoactive bowel sounds, soft, non-tender abdomen, no palpable masses Genitourinary: no bladder fullness Skin: warm Musculoskeletal: generalized weakness Neurologic: AAOx3, CN II-XII Intact Psychiatric: interacting appropriately ICD10 Worksheet Patient Problems: Problems Problem Status Onset Renal infarction Acute Shortness of breath Acute Failure to thrive Acute Nausea and vomiting Acute Dehydration Acute
[2016-12-17 21:33] LABS: CELIAC DISEASE INTERPRETATION See Comments; IMMUNOGLOBULIN A CELIAC 195 mg/dL (61 - 356)
[2016-12-17] MEDS ORDERED: RANITIDINE SYRUP 15 MG/1 ML UDSYR PO SCH (22:00)
[2016-12-18] MEDS: traZODone 100 MG TAB PO SCH (01:44)
[2016-12-18 07:51] VITALS: RESP 18
[2016-12-18] MEDS: FLUoxetine 20 MG CAP PO SCH (09:37)
[2016-12-18] MEDS: ENOXAPARIN 30 MG/0.3 ML SYR SC SCH (09:37)
[2016-12-18] MEDS: LISINOPRIL 20 MG TAB PO SCH (09:38)
[2016-12-18] MEDS: SENNOSIDES/DOCUSATE SODIUM TAB PO SCH (09:38)
[2016-12-18] MEDS: PANTOPRAZOLE SODIUM 40 MG TAB PO SCH (09:38)
[2016-12-18] MEDS ORDERED: FLUoxetine 20 MG CAP PO SCH (12:24)
[2016-12-18] MEDS ORDERED: traZODone 100 MG TAB PO SCH (12:24)
--- NOTE | 2016-12-18 14:14 | SOAPPROG ---
[facility] Progress Note Assessment/Plan: Assessment:Plan: 1) wt loss, epi pain, nausea -- I think all acid peptic dz, feeling better on BID PPI and QHS H2RA, bx from EGD pending. Continue for approx 4-8 weeks at this does. IF she is doing well, maybe at 4 weeks decrease PPI to daily and continue high dose QHS H2RA (zantac 300mg or pepcid 40 mg) 2) dispo - rehab today is plan 12/18/16 14:10 Subjective: cc - wt loss, nausea, epi pain pt feeling better, less sx's, smiling Objective: Vital Signs Temp Pulse Resp BP Pulse Ox 36.8 C 77 18 146/76 H 90 L 12/18/16 07:49 12/18/16 07:49 12/18/16 07:49 12/18/16 09:38 12/18/16 07:49 Laboratory Results 12/16/16 05:08 12/17/16 12/18/16 12/19/16 05:59 05:59 05:59 Intake Total 1664 2776 Balance 1664 2776 Alert CTA S1S2, +BS, soft very minimal discomfort with deep palpation ICD10 Worksheet Patient Problems: Problems Problem Status Onset Dehydration Acute Failure to thrive Acute Nausea and vomiting Acute Renal infarction Acute Shortness of breath Acute
--- NOTE | 2016-12-18 15:09 | PDIAF ---
- Diagnosis Code Status: Full Code - Medication Management Discharge Medications: Medications to Continue on Transfer Herbals/Supplements -Info Only 1 ea PO DAILY 05/29/16 [Last Taken Unknown] Lisinopril [Zestril 30 mg] 30 mg PO DAILY 12/13/16 [Last Taken 12/12/16] Famotidine [Pepcid 20 MG (*)] 40 mg PO HS #30 tab 12/18/16 [Last Taken Unknown] MIRTAZAPINE [Remeron 7.5 mg] 7.5 mg PO HS #30 tablet 12/18/16 [Last Taken Unknown] Pantoprazole Sodium [Protonix] 40 mg PO BID #60 tablet. 12/18/16 [Last Taken Unknown] traZODone [traZODONE 100MG (*)] 50 mg PO HS #30 tab 12/18/16 [Last Taken Unknown ] Discharge Medications: Refer to the Discharge Home Medication list for PRN reason. - Orders Services needed: Registered Nurse, Certified Corporation Lawyer, Master Supervisor Refining , Physical Therapy, Occupational Therapy Oxygen: nocturnal O2 at 2 lpm Diet Recommendation: no restrictions on diet Diet Texture: Regular Texture Diet Weigh Patient: weekly - Labs/Radiology CBC Date: 12/25/16 CMP Date: 12/25/16 - Follow Up Care Current Providers and Referrals: Sandra Rodriguez MD [Primary Care Provider] - follow up in 2 weeks
--- NOTE | 2016-12-18 15:33 | GDS ---
[f rep st] DISCHARGE SUMMARY NEW AND ACUTE DIAGNOSES ON THIS ADMISSION: 1. Acute severe depression with 35-pound weight loss in the last 6-9 months. 2. Gastroesophageal reflux disease with noted gastritis. 3. Peripheral vascular disease with an abdominal aortic aneurysm of 6.4 cm and a thoracic aneurysm of 4 cm. 4. Hypertension. 5. Normal pressure hydrocephalus, possible per findings of the CT scan and consultation with Neurol lang. 6. Weight loss of approximately 35 pounds in the last 6-12 months. CONSULTATIONS: 1. Thoracic Surgery. 2. Neurology. 3. Gastroenterology. 4. Psychiatry with Laura Dinh MD. PROCEDURES: EGD performed by Jose R Bell MD with findings of crepe paper esophagitis in the proximal esophagus extending to approximately 30 cm with a normal distal esophagus. There was erosi ve gastritis both in the distal body and the antrum of the stomach and a normal duodenum. HISTORY OF PRESENT ILLNESS: This 71-year-old female was admitted because of a failure to thrive. S he has lost approximately 35-40 pounds in the last 6-12 months and is felt to be suffering from jo r depression. She was admitted for further evaluation. HOSPITAL COURSE: Consultation with Gastroenterology revealed that she does have esophagitis and gas tritis, and decision was to treat her for these as, per Gastroenterology, it is possible her loss of appetite, slight feeling of nausea, and weight loss could be attributed to the findings seen on the EGD. Additionally she was evaluated for depression by Dr. Laura Dinh of Psychiatry. She felt it was possible that her Prozac was no longer effective and that medication could be stopped. She sug gested lowering her dose also of trazodone and placing her on mirtazapine as an antidepressant. Regarding the thoracic and abdominal aneurysms, a consultation with Thoracic Surgery was obtained. It was felt that given her medical condition, these were not amenable to surgical intervention. The re is some risk of rupture though not a great risk at this time if her blood pressure is managed. F sauravling was that if she recovered medically then she could present for surgical correction endovascul bree of the aneurysm. The patient had been under evaluation for possible normal pressure hydrocephalus by Dr. Aureliano pete. He consulted during this hospitalization and felt that it is possible that what is seen on the C T and MRI scans is secondary to normal pressure hydrocephalus as it shows some microvascular disease and widening of the ventricles. The only way possible to confirm this at this time is to do a high -volume lumbar puncture with video gait analysis. This can only be done at the [facility]. At this time, her medical condition does not obviate this study. Overall, the plan was to see if treating her gastritis and esophagitis would improve her appetite. In addition, we have lowered her dose, stopped the Prozac, started mirtazapine, and decreased her do se of trazodone. The latter to alleviate some of her sleepiness. She will be transferred to a SNF for ongoing care. There is probably an interplay here between an underlying depression and possibly gastrointestinal disease with gastritis. Should there no longer be any improvement following 1 or 2 months of therapy, then consideration could be to approach the issue of the normal pressure hydroc ephalus. DISCHARGE MEDICATIONS: Stopped medications will be the Prozac and her trazodone 100 mg. New medication will be trazodone at 50 mg q.h.s. and mirtazapine 7.5 mg p.o. at bedtime. Other new medications will be Protonix 40 mg b.i.d. and Pepcid 40 mg q.h.s. Resumed medications will be lisinopril 30 mg daily. PLAN: The patient is being transferred to the center at [facility]. Her followup after she leaves this facility will be with Dr. Sandra Rodriguez. Time of this discharge required 50 minutes, greater than 50% to peer financial counselor and coordinate care. /[id number]/MODL
[2016-12-18 15:42] LABS: % SATURATION 16 % (20-55); TOTAL IRON BINDING CAPACITY 308 ug/dL (260-490)
[2016-12-18 17:07] VITALS: BP 149/77; PULSE 73; TEMP 98; O2SAT 97
--- NOTE | 2016-12-18 20:54 | BCON ---
[ rep ] BEHAVIORAL HEALTH CONSULTATION PSYCHIATRIC CONSULTATION DATE OF CONSULTATION: 12/18/2016 REFERRING PHYSICIAN: Jose R Ratliff Jr., MD REASON FOR CONSULT: Severe depression over past 9-10 months, worsening and unresponsive to treatment. REQUESTING SERVICE: Internal Medicine, hospitalist, Dr. Jose R Ratliff. The patient was interviewed and evaluated/examined times 90 minutes. Additional time was spent reviewing records, speaking with provider and staff, also . CHIEF COMPLAINT: "I guess they think I am depressed." HISTORY OF PRESENT ILLNESS: The patient today is a 71-year-old female, retired nurse, 50 years, with history of peripheral vascular disease who presented for a neurology followup appointment on 12/13/2016, but was noted to be hypotensive with nausea, vomiting, and unable to ambulate. She was sent to the emergency department for evaluation and admitted. History indicates the patient reported having increasing worsening of lower extremity weakness, nausea , decreased p.o. intake with weight loss reportedly since her fem-pop bypass surgery in May 2016. Symptoms had worsened over the past month with increased depression, and worsening physical debilitation, with malnutrition and adult failure to thrive. Over the last 9-10 months, she has had approximately 30 pounds weight loss. She did have a brain MRI, in which there was some suggestion of normal pressure hydrocephalus. She is presently undergoing an extensive workup for her symptoms including CT abdomen and pelvis , Gastroenterology consultation for upper endoscopy, and rule out malignancy. Patient endorses symptoms of depression (see below ROS) and also notes cognitive impairment. The patient did feel that since her Prozac was increased from 20-40 mg 6-8 months ago, and since then she has noted no benefit to her mood although reports feeling "more flat" with some decreased motivation since on increased Prozac. She reports trazodone has been "definitely helpful" for sleep but with her current condition and increased depression, she has been sleeping more than normal. Physically, she does report that her urinary incontinence has been worse since she has been in the hospital, she feels this may be related to having received IV fluids, she wears diapers now and feels she has "no control" over her bladder. She does report weakness in her lower extremities, stating she has been needing to use a walker or cane over the past 6 or 7 months. PAST PSYCHIATRIC HISTORY: Patient reports no past history of any outpatient or inpatient psychiatric treatment. She admits having tried therapy in the past but did not recall whether she had any benefit, and apparently it was only brief. She recalls first feeling depressed in her 30s, and reports chronic low level depression, likely dysthymia, since that time. She correlates depression onset in her 30s to her 's onset of drinking, she reports "my is an alcoholic." States he is very "caring" but his alcoholism feels "distressing " to her as he becomes "more neglectful and hateful." She was unable to be more specific regarding her use of the word hateful, but did consistently state he was more neglectful to her emotionally, especially when he drinks. She denies being a victim of any physical or verbal abuse. She also recalls feeling very depressed during the first year after her snf from being a nurse. She states she increased her smoking "to cope," but otherwise did not note any other coping strategies. She reports generally not sharing her feelings with her [place] of friends, it is unclear if she still involved with any friends socially, but she did state in her 30s and 40s, they did go out with friends and used to do more entertaining. However, she "never told anyone " about her struggles with her 's alcoholism. PAST PSYCHIATRIC MEDICATION: She reports first starting medication in her 40s, thinks Zoloft which she recalls was helpful, she took this for quite some time , again unable to state how long. She started this medication because her daughter was working as a drug rep and provided her with samples, "I think I told my daughter I was depressed," but also states daughter felt she was as well. Recalls trial of Wellbutrin for smoking cessation, which did not help with smoking cessation or mood. Does not recall other antidepressant medication trials except Prozac, states primary care physician started her on Prozac many years ago and she has been on 20 mg since, with recent increase last year to 40 mg about 6 months ago. Notes no benefit for depression and feels more "flat" since increase Prozac. Patient reports she has been on trazodone for years, currently on 100 mg. She states asking her primary care physician for this medication as her "nephew told me about it." SAFETY: She denied any suicidal ideation or suicide attempt or any history of harm to others or thoughts to harm others. She did report passive suicidal ideation. However, occurring intermittently since her aneurysm diagnosis, preferring to in her sleep and not suffer, rather than suffer with rupture of an aneurysm. Patient denied any history of psychotic symptoms even when very depressed, no history of bipolar mood disorder or any posttraumatic stress disorder symptoms. She denied prominent anxiety disorder, just occasionally having mild anxiety/worry, especially with her physical condition. SOCIAL HISTORY: Patient has been for over 50 years, got at age 18 to her current who was 21 years old at that time. She has 2 children , currently ages 49 and 50, one lives in [place], the other in [place]. Each child has 2 children. Patient has been living in [place] since the 1970s. 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 Thinks she retired 10-15 years ago, but then states retiring at age 64 and currently now being 69 years old (although she is 71.) SUBSTANCE USE HISTORY: Patient denied any history of drug use or alcohol. She did try medical marijuana for her appetite about 6 months ago which she reports had no effect, and no benefit. She does drink caffeinated tea approximately 4 times a day. She used to smoke approximately 1 pack per day for over 40 years, but states she quit over 1 year ago. Again, denied alcohol use or drinking even occasionally with her ; however, added that her drinks "nightly," and gets to where he is "falling down drunk." She denied use of any other herbs or supplements. PAST MEDICAL HISTORY: 1. Peripheral vascular disease, status post femoral-popliteal bypass 05/2016. 2. Descending thoracic aortic aneurysm. 3. Hypertension. 4. Adult failure to thrive. 5. Bilateral lower extremity weakness, urinary incontinence, chronic nausea, vomiting. 6. Left atrophic kidney noted 05/2016. 7. Sleep-related hypoventilation- showed saturation dropping as low as 82%. ( Patient admits NOT using recommended 2 L nasal cannula oxygen supplementation ever), diagnosed by sleep study in August 2013 8. 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 9. Recent dietary consult noting BMI less than 18.5 with 25% weight loss in 6 months from decreased p.o. intake. 10. 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 11. History of iron deficiency with iron saturation 10 in 2008, increased to 52 after repletion. Most recent iron saturation March 2014, decreased from 39 in August of 2013. Unclear if the patient has been on any supplementations since that time. TSH 1.49 (12/13/2016), B12 of 374 (12/2016), vitamin D 42 (in 2009). 12. spinal stenosis, cervical spine greater than lumbar spine 13. recent MRI of the brain without contrast showed chronic microvascular ischemic changes in periventricular and subcortical regions (more frontally based) as well as ventricular dilation, seen mildly out of proportion to her global volume loss 14. She denies a history of traumatic brain injury. PSYCHIATRIC REVIEW OF SYSTEMS (ROS): Patient endorsed depressed mood, rating self as 5/10, felt mostly "because of her increased physical limitations." She does relate that she would probably also be feeling depressed mildly at baseline if it were not for her physical limitations; however, clearly saying she is more depressed because of them. Increased sleep, approximately 10 hours a night, greater than her normal 8 hours per night. She denies any daytime naps. Note, sleep is "good" quality, however. Appetite is markedly decreased, not feeling hungry and reporting early satiety. Energy is "pretty low." Last recalls having good energy last summer when she was getting out and walking more. Concentration has been decreased, also notes difficulty with remembering and what she read and at times comprehending what she has read. She states, "I used to be an avid reader," but "I just watch TV now" over the past year. Also endorses mild anhedonia, it is difficult to state if she is having no interest in things she used to enjoy, "its been so gradual," but does think she would still derive pleasure if grandchildren visited or if she were able to concentrate on and read a book, or have the physical energy to go outside and enjoy the outdoors as she used to. She feels hopeless. Not feeling worthless. Does feel helpless due to difficulty ambulating and having more physical limitations. She denied any psychotic symptoms. She denied nightmares or flashbacks or other PTSD symptoms, and no reported history of trauma. Anxiety is "a little," no history of panic attacks. COGNITIVE ASSESSMENT: Mini-mental status exam, patient was scored as technically 24/28 on mini-mental status exam, missing 2 on memory recall, unable to recall even with multiple choice cues. She also missed 2 points on orientation, stating it was Saturday (it is Saturday), and the date was the 12 (it is the ). She answered other orientation questions correctly, although season and floor were not asked. Her level of education, having training as an RN. Regarding executive functioning testing, she did quite poorly. Clock drawing task was attempted. She appropriately donta a [place], put numbers for clock fairly appropriately spaced from 12-6 but then paused, looked at examiner, and asked if she needed to finish beyond this. She did complete the clock, and when asked to place the hands so that time reads "10 after 11," patient appropriately place the short hand slightly passed the 11, and placed the long hand between the 12 and 1, writing in an additional number "10" in between the 12 and 1. She was unable to recognize this clock was inaccurate. Trial B was attempted, she did this with some errors, notably of switching letters and numbers, she stated "1A, 2B, 3C, 4D, 5E, 6F, 7G, H8, 9 'something,' " then recalled I and then gave out stating this was "too hard." Verbal fluency was assessed. Patient came up with 6 words starting with the letter F in 1 minute. She stated "I can't think," and appeared to give up easily. Luria hand task was notable for an inability to perform the hand tasks with the examiner more than 2 times. She was unable to perform any on her own. MENTAL STATUS EXAM: Patient was an elderly, thin-appearing female, casually dressed, lying in hospital bed, frail-appearing. Eye contact was good. Speech rate and volume were normal, although somewhat soft spoken. She was engaged with examiner. Psychomotor activity was decreased. Mood was "depressed." Affect was restricted range, dysphoric. Thoughts were linear, goal-directed, notable for some forgetfulness around details of her history. There was no evidence of her responding to internal stimuli. She denied any auditory or visual hallucinations. She denied any thoughts to harm others. She endorsed intermittent passive suicidal ideation, none currently, and no thoughts, plan, or intent to harm herself. Insight was good. Judgment was fair. She was alert and oriented with cognitive assessment as noted above. ASSESSMENTS: A 71-year-old female with a long history of probably underlying, chronic dysthymia; also major depressive disorder, recurrent, increased in the context of increasing medical difficulties and cognitive difficulties. Multiple medical problems, currently in the process of being worked up, including suggestion of normal pressure hydrocephalus. She does note a worsening cognition, increasing lower extremity weakness and increased depression with increased appetite disturbance over the past 6-8 months. She does report that she does endorse symptoms consistent with major depressive disorder; however, feels that her depression is exacerbated by her declining physical status and increasing debility. DIAGNOSES: 1. Major depressive disorder, recurrent, moderate to severe 2. Rule out underlying chronic dysthymic disorder. 3. Unspecified neurocognitive disorder, mild, with notable executive impairment. RECOMMENDATIONS: 1. Psychiatric. Patient reports no improvement since increased Prozac to 40 mg approximately 6-8 months ago, but feels "more flat" and some decreased motivation. SSRIs in high doses are known to induce apathy and can cause flattening as well, and since this has not been of any benefit to her depression , it would be reasonable to decrease this back to 20 mg, perhaps even discontinues this medication. It has a long half-life and so discontinuing this medication should not cause any problem with a discontinuation syndrome as is sometimes seen with antidepressant medication. She recalls having had some benefit with Zoloft in the past; however, with her gastrointestinal complaints, it may be reasonable to avoid other serotonergic medications at this time. I would recommend mirtazapine, low dose, starting at 7.5 or 15 mg. Low dose will help with sleep, it can be sedating, also stimulate appetite, and hopefully have effectiveness for her as an antidepressant. Regarding trazodone, patient reports this has helped sleep, but patient admits with her depression she has been "sleeping too much," so could try decrease trazodone to 50 mg and monitor. She is somewhat ambivalent about following up with an outpatient psychiatrist, but did agree that outpatient therapy could be beneficial and would be interested. 2. Unspecified neurocognitive disorder, mild. This seems multifactorial including her history of vascular disease, and possible normal pressure hydrocephalus, as well as depression which can cause symptoms consistent with "pseudodementia" as was noted with some decreased effort on her part on some of the testing, but there was certainly underlying executive impairment evident. I would recommend continued workup for normal pressure hydrocephalus as her symptoms do seem very suggestive with gait disturbance, urinary incontinence in the context of negative urinalysis for any UTI, and increasing cognitive difficulties she feels worsening over the past year. Also would avoid any agents that could worsen her cognition including anticholinergic, benzodiazepines, or narcotics when possible. Would try to maximize any treatments medically that could help her cognition, including encouraging wearing supplemental oxygen at night as was recommended in 2013 to decrease any hypoxemia contributions to her cognition. Recommend check iron as patient with a documented history of a low iron saturation improved with repletion. Any of this could help with her subjective sense of low energy and weakness and fatigue. Vitamin B12 level was normal. However, it certainly would not hurt to further supplement that, and check a homocystine level if this would be of any benefit. Additionally in discussion with briefly, he seemed to minimize her depression, stating he did not feel that there were any such concerns except for as related to a physical disability. He also added that she calls him and does frequently want him to be present because she otherwise feels "lonely." This is another likely chronic issue which could be benefitted by outpatient therapy. Patient continues to be interested in this. Thank you for allowing me to consult on this patient. Please do not hesitate to contact me for any further questions or concerns. I can be reached by calling the [address] [place] [address] . /[id number]/MODL MTDD
[2016-12-18] MEDS ORDERED: MIRTAZAPINE 15 MG TAB PO SCH (21:00)
--- NOTE | 2016-12-21 10:20 | PQFORM ---
PHYSICIAN QUERY FORM Needs Your Response This query form is being sent to you to assure this patient record is coded properly. Please respond to the question below: MAIL CARRIER TECHNICIAN QUESTION: Dear Dr. Ratliff, This patient presented to the ER with nausea, vomiting and weight loss. H&P states patient had weakness, failure to thrive with a 30lb weight loss. In consultation by Dr. Gaxiola diagnosed patient with 'protein calorie malnutrition' and reinforced nutritional supplementation. In 12/[address] Bell patient was diagnosed with 'anorexia'. In the hospitalist progress notes dated 12/14-12/17 patient had nausea, anorexia, early satiety, and a 35-40lb weight loss. Discharge summary notes patient had a 35lb weight loss in 6-9 months. After study, should the diagnosis of 'protein calorie malnutrition' be included in the discharge summary? Yes ____Yes include in diagnosis No Other more appropriate diagnosis Unable to determine Thank you [facility] [phone] INSTRUCTIONS FOR RESPONSE: Answer question by clicking on the "Edit Document" button. Move cursor to area below the stars. When complete, hit "Save." Click on the "Sign" button, then click "Sign" again. Type in your PIN and hit "Enter." MTDD
== END 2016-12-18 18:56 | DRG 392 ==
LOC: EDUNIT# → F1N 18:36 → OBSVTOIN 19:39
PROVIDERS: ADMIT Internal Medicine Pulmonary Disease; ATTEND Internal Medicine
PROC: 0DB58ZX Excision of Esophagus, Via Natural or Artificial Opening Endoscopic, Diagnostic (ICD-10-PCS; principal; 2016-12-17 08:14)
PROC: 0DB68ZX Excision of Stomach, Via Natural or Artificial Opening Endoscopic, Diagnostic (ICD-10-PCS; principal; 2016-12-17 08:14)
DX: K21.0 Gastro-esophageal reflux disease with esophagitis (principal); F33.2 Major depressive disorder, recurrent severe without psychotic features; E46 Unspecified protein-calorie malnutrition; G91.2 (Idiopathic) normal pressure hydrocephalus; R63.4 Abnormal weight loss; I73.9 Peripheral vascular disease, unspecified; I71.4 Abdominal aortic aneurysm, without rupture; I71.2 Thoracic aortic aneurysm, without rupture; I10 Essential (primary) hypertension; K29.60 Other gastritis without bleeding; G47.00 Insomnia, unspecified; R62.7 Adult failure to thrive; R63.0 Anorexia; M48.02 Spinal stenosis, cervical region; M48.06 Spinal stenosis, lumbar region; G60.9 Hereditary and idiopathic neuropathy, unspecified
CPT/HCPCS: 82607-90; 82784-90; 83516-90; 84134-90; 86334-90; 97116-GP; 97161-GP; 97166-GO; 97530-GP; 97535-GO; A9585; G8978-GP-CK; G8979-GP-CI; G8987-GO-CK; G8988-GO-CI; J1650; J2250; J2405; J3010; Q9967

== ENCOUNTER 2017-02-27 15:38 | Emergency (ER) | payer OTHER, MEDICARE ==
[2017-02-27 19:45] VITALS: BP 124/94; PULSE 94; RESP 2; TEMP 97.5; O2SAT 92
== END 2017-02-27 16:16 | disposition left against medical advice (07) ==
DX: Z53.21 Procedure and treatment not carried out due to patient leaving prior to being seen by health care provider (principal)